=== PATIENT | male | born 1960 | race Caucasian/White ===

== ENCOUNTER → 2016-06-29 | Emergency (ER) | payer OTHER ==
[~2016-06-29] MED LIST: SODIUM CHLORIDE 1,000 ML IV STA
[2016-06-29 16:37] VITALS: BMI 29.8
--- NOTE | 2016-06-29 17:02 | PDOC ---
[id number] No Limitations - History of Present Illness Initial Comments: 06/29/16 17:36 The patient is a 56-year-old male, with a past medical history of bilateral retinal detachments who presents to the ED with nausea and diarrhea for 3 days. Patient notes that he had dinner on wednesday and had some unusual chocolate ice cream dessert. Patient reports 3 days of watery diarrhea brown in color, non foul smelling, non bloody. Patient was in the bathroom yesterday and he was nauseous and had the urge to vomit but fainted before vomiting and fell head first. Patient denies any headache, blurry vision, fever or chills. <Mari Graham - Last Filed: 06/29/16 18:54> <Deyvi King - Last Filed: 09/08/16 10:22> - General Chief Complaint: Nausea/Vomiting Stated Complaint: FALL, DIZZINESS,DIARRHEA Time Seen by Provider: 06/29/16 17:01 Past History <Mari Graham - Last Filed: 06/29/16 18:54> - Surgical History Abdominal Surgery: Yes (HERNIA REPAIR) - Psycho/Social/Smoking Cessation Hx Suicidal Ideation: No Smoking Status: No Smoking History: Never smoked Number of Cigarettes Smoked Daily: 0 <Deyvi King - Last Filed: 09/08/16 10:22> - Past Medical History Allergies/Adverse Reactions: Allergies Allergy/AdvReac Type Severity Reaction Status Date / Time No Known Allergies Allergy Verified 06/29/16 16:34 Home Medications: Ambulatory Orders No Home Medications 0 dose .ROUTE UTDICT 01/16/12 Prednisone [Deltasone -] 20 mg PO DAILY #18 tablet 07/18/12 Review of Systems - Review of Systems Able to Perform ROS?: Yes Comments:: 06/29/16 17:40 GENERAL/CONSTITUTIONAL: No fever or chills. No weakness. HEAD, EYES, EARS, NOSE AND THROAT: No change in vision. No ear pain or discharge. No sore throat. CARDIOVASCULAR: No chest pain or shortness of breath. RESPIRATORY: No cough, wheezing, or hemoptysis. GASTROINTESTINAL: +nausea, +diarrhea. No vomiting or constipation. GENITOURINARY: No dysuria, frequency, or change in urination. MUSCULOSKELETAL: No joint or muscle swelling or pain. No neck or back pain. SKIN: No rash NEUROLOGIC: No headache, vertigo, loss of consciousness, or change in strength/ sensation. ENDOCRINE: No increased thirst. No abnormal weight change. HEMATOLOGIC/LYMPHATIC: No anemia, easy bleeding, or history of blood clots. ALLERGIC/IMMUNOLOGIC: No hives or skin allergy. <Mari Graham - Last Filed: 06/29/16 18:54> *Physical Exam - Vital Signs Last Vital Signs Temp Pulse Resp BP Pulse Ox 98.7 F 84 18 146/87 96 06/29/16 16:34 06/29/16 16:34 06/29/16 16:34 06/29/16 16:34 06/29/16 16:34 - Physical Exam Comments: 06/29/16 17:40 GENERAL: Awake, alert, and fully oriented, in no acute distress HEAD: No signs of trauma EYES: PERRLA, EOMI, sclera anicteric, conjunctiva clear ENT: Auricles normal inspection, hearing grossly normal, nares patent, oropharynx clear without exudates. Moist mucosa NECK: Normal ROM, supple, no lymphadenopathy, JVD, or masses LUNGS: Breath sounds equal, clear to auscultation bilaterally. No wheezes, and no crackles HEART: Regular rate and rhythm, normal S1 and S2, no murmurs, rubs or gallops ABDOMEN: +Hyperactive bowel sounds in all 4 quadrants, + mildly distended but soft, +non tender. No guarding, no rebound. No masses EXTREMITIES: Normal range of motion, no edema. No clubbing or cyanosis. No cords, erythema, or tenderness NEUROLOGICAL: Cranial nerves II through XII grossly intact. Normal speech SKIN: Warm, Dry, normal turgor, no rashes or lesions noted. <Mari Graham - Last Filed: 06/29/16 18:54> - Vital Signs Last Vital Signs Temp Pulse Resp BP Pulse Ox 98.7 F 84 18 146/87 96 06/29/16 16:34 06/29/16 16:34 06/29/16 16:34 06/29/16 16:34 06/29/16 16:34 <Deyvi King - Last Filed: 09/08/16 10:22> ED Treatment Course - LABORATORY CBC & Chemistry Diagram: 06/29/16 17:29 06/29/16 17:29 - RADIOLOGY Radiology Studies Ordered: 06/29/16 18:36 EXAM#: TYPE/EXAM: RESULT: RAD/ABDOMEN FLAT UPRIGHT Diarrhea and abdominal pain. X-ray of the abdomen supine and upright Compared to prior x-ray of the abdomen dated 04/24/2011. There are multiple air-fluid levels in right side of the abdomen likely within the ascending colon consistent with the clinical history of diarrhea/ileus. The bowel gas pattern is nonobstructive. No gross organomegaly or free air is seen. Visualized osseous structures appear intact Impression: See discussion above 06/29/16 18:55 EXAM#: TYPE/EXAM: RESULT: CT/FACIAL BONES CT W/O CONTRAST & CT/HEAD CT WITHOUT CONTRAST Status post trauma with a nasal bone fracture. CT scan of the brain without intravenous contrast. The ventricles and basal cisterns appear unremarkable. No gross mass lesion, focal infarct or intracranial hemorrhage is identified. Visualized paranasal sinuses and mastoid air cells are well-aerated. The calvarium is intact. Deformity of the nasal bone consistent with a fracture. Impression: No evidence of a focal intracranial lesion or hemorrhage seen. Deformity of the nasal bone consistent with a fracture. CT scan of the facial bones without intravenous contrast. Coronal and sagittal reconstruction images were obtained. There is a comminuted slightly depressed fracture of the nasal bone involving the right, midline and left side with the deformity and mild displacement towards the right side. Overlying soft tissue swelling is present. No other gross fracture is identified. Both orbits are intact . There is deformity and oval-shaped of both eye globes. Slightly hyperdense band is seen around the right globe, anteriorly compatible with prior surgery. Mild mucosal thickening in the ethmoid air cells. Bilateral upper neck and submandibular subcentimeter lymph nodes are present which are nonspecific Visualized intracranial contents appear unremarkable. IMPRESSION: Comminuted slightly depressed fracture of the nasal bone involving the midline and both sides with mild deformity and deviation of the nasal bone towards the right side as well as mild overlying soft tissue swelling. Congenital deformity of both eye globes, as described above <Mari Graham - Last Filed: 06/29/16 18:54> - LABORATORY CBC & Chemistry Diagram: 06/29/16 17:29 06/29/16 17:29 <Deyvi King - Last Filed: 09/08/16 10:22> Medical Decision Making - Medical Decision Making 06/29/16 17:38 56-year-old male, with a past medical history of bilateral retinal detachments who presents to the ED with nausea and diarrhea for 3 days. He notes that the diarrhea is watery brown in color, non foul smelling, non bloody. He states he lost 7 pounds over the last 3 days. Will order IVF, labs and imaging. Will reassess after the results are back. <Mari Graham - Last Filed: 06/29/16 18:54> *DC/Admit/Observation/Transfer - Attestations Scribe Attestion: 06/29/16 17:39 Documentation prepared by JOHN Greenwood, acting as medical director of hospice for Deyvi King MD/DO. <Mari Graham - Last Filed: 06/29/16 18:54> - Discharge Dispostion Admit: No - Attestations Physician Attestion: 06/29/16 17:02 I, Dr. Deyvi King, attest that this document has been prepared under my direction and personally reviewed by me in its entirety. I further attest, that it accurately reflects all work, treatment, procedures and medical decision -making performed by me. <Deyvi King - Last Filed: 09/08/16 10:22> Diagnosis at time of Disposition: Gastroenteritis - Discharge Dispostion Disposition: HOME Condition at time of disposition: Improved - Referrals Referrals: Leroy Solis MD [Staff Physician] - - Patient Instructions Additional Instructions: PLENTY OF FLUIDS (WATER/GATORADE) BLAND DIET, ADVANCE TOLERATED EAT FREQUENT, SMALL MEALS THROUGHOUT THE DAY MAALOX, 30 ml 1/2 HOUR AFTER MEALS AND AT BED TIME RETURN IF FEVER, VOMITING, SEVERE PAIN SEE YOUR DOCTOR WITHIN 48 HOURS
[2016-06-29 17:36] LABS: BASOPHIL 0.4 % (0-2.0); EOSINOPHIL 2.2 % (0-4.5); MCH 30.5 pg (25.7-33.7); MCHC 34.5 g/dl (32.0-35.9); MEAN CELL VOLUME 88.3 fl (80-96); MEAN PLT VOLUME 8.8 fl (7.5-11.1); NEUTROPHILS 72.2 % (42.8-82.8); PLATELET COUNT 214 K/MM3 (134-434); RDW 14.3 % (11.9-15.9); WHITE BLOOD COUNT 7.7 K/mm3 (4.0-10.0)
[2016-06-29 17:59] LABS: INR 1.17 (0.82-1.09); PROTHROMBIN TIME (PATIENT) 12.9 SEC (9.98-11.88)
[2016-06-29 18:15] LABS: ALBUMIN 3.9 g/dl (3.4-5.0); ALK PHOS 73 U/L (45-117); ANION GAP 10 (8-16); BILIRUBIN,TOTAL 1.6 mg/dL (0.2-1.0); CALCIUM 8.7 mg/dL (8.5-10.1); CO2 26 mmol/L (21-32); GLUCOSE,RANDOM 110 mg/dL (74-106); SGOT/AST 11 U/L (15-37); SGPT/ALT 25 U/L (12-78); TOT PROT 7.2 g/dl (6.4-8.2)
--- NOTE | 2016-06-29 19:23 | PDOC ---
*Physical Exam - Vital Signs Last Vital Signs Temp Pulse Resp BP Pulse Ox 98.7 F 84 18 146/87 96 06/29/16 16:34 06/29/16 16:34 06/29/16 16:34 06/29/16 16:34 06/29/16 16:34 - Physical Exam General Appearance: Yes: Nourished, Appropriately Dressed. No: Apparent Distress HEENT: positive: Normal ENT Inspection Respiratory/Chest: positive: Lungs Clear, Normal Breath Sounds. negative: Respiratory Distress Cardiovascular: positive: Regular Rhythm, Regular Rate Gastrointestinal/Abdominal: positive: Normal Bowel Sounds, Flat, Soft. negative : Tender ED Treatment Course - LABORATORY CBC & Chemistry Diagram: 06/29/16 17:29 06/29/16 17:29 - ADDITIONAL ORDERS Additional order review: Laboratory Results 06/29/16 06/29/16 17:29 17:29 INR 1.17 H Sodium 141 Potassium 3.3 L Chloride 105 Carbon Dioxide 26 Anion Gap 10 BUN 22 H Creatinine 1.0 Creat Clearance w eGFR > 60 Random Glucose 110 H Calcium 8.7 Total Bilirubin 1.6 H AST 11 L ALT 25 Alkaline Phosphatase 73 Total Protein 7.2 Albumin 3.9 Lipase 122 06/29/16 17:29 RBC 4.76 MCV 88.3 MCHC 34.5 RDW 14.3 MPV 8.8 Neutrophils % 72.2 Lymphocytes % 16.4 Monocytes % 8.8 Eosinophils % 2.2 Basophils % 0.4 - RADIOLOGY Radiology Studies Ordered: Category Date Time Status ABDOMEN & PELVIS CT W/O CONTR [CT] Stat CT Scan 06/29/16 19:14 Ordered - Medications Given in the ED: ED Medications Discontinued Medications Generic Name Dose Route Start Last Admin Trade Name Freq PRN Reason Stop Dose Admin Sodium Chloride 1,000 mls @ 1,000 mls/hr 06/29/16 17:18 06/29/16 17:34 Normal Saline - IV 06/29/16 18:17 1,000 mls/hr ASDIR STA Administration Progress Note - Progress Note Progress Note: signed out to me for CT follow up. pt w/ diarrhea and dehydration w/ syncope. abd soft nt/nd. passing gas xray c/w clinical diagnosis w/ no susp (clinical or radiological) for SBO will cancel CT to r/o sbo *DC/Admit/Observation/Transfer Diagnosis at time of Disposition: Gastroenteritis - Discharge Dispostion Disposition: HOME Condition at time of disposition: Improved - Patient Instructions Additional Instructions: PLENTY OF FLUIDS (WATER/GATORADE) BLAND DIET, ADVANCE TOLERATED EAT FREQUENT, SMALL MEALS THROUGHOUT THE DAY MAALOX, 30 ml 1/2 HOUR AFTER MEALS AND AT BED TIME RETURN IF FEVER, VOMITING, SEVERE PAIN SEE YOUR DOCTOR WITHIN 48 HOURS
[2016-06-29 19:44] VITALS: BP 135/81; PULSE 72; TEMP 98
== END | disposition home or self-care (01) ==
LOC: JER 16:23
PROC: 3E0337Z Introduction of Electrolytic and Water Balance Substance into Peripheral Vein, Percutaneous Approach (ICD-10-PCS; principal; 2016-06-29)
DX: K52.9 Noninfective gastroenteritis and colitis, unspecified (principal)
CPT/HCPCS: 36415; 70450-TC; 70486-TC; 74020-TC; 80053; 83690; 85025; 85610; 96360; 99283-25

== ENCOUNTER 2017-11-13 08:20 | Emergency (ER) | payer OTHER ==
[2017-11-13 08:30] VITALS: TEMP 97.9; BMI 31.5
--- NOTE | 2017-11-13 08:47 | PDOC ---
History of Present Illness - General History Source: Patient, Family, Old Records Exam Limitations: No Limitations - History of Present Illness Initial Comments: 11/13/17 09:44 The patient is a 57 year old male, with a significant PMH of bilateral retinal detachment, who presents to the emergency department with 2 days of dizziness. The patient states that two nights ago at 3 am he got up from bed to use the bathroom and began to experience a sudden onset of dizziness describes as a room spinning sensation. The patient states the dizziness is made worse with movement and when he turns his head. The patient states he has not been able to walk on his own secondary to the dizziness. The patient states he has never had these symptoms in the past. The patient also endorses nausea without vomiting but states he has been dry heaving. The patient also endorses a decreased appetite. The patient states he had been feeling well and of his usual state of health up until two days ago when he experienced the dizziness sensation. The patient denies any sick contacts. The patient denies chest pain, shortness of breath, weakness or headache. Denies fever, chills, vomit, diarrhea and constipation. Denies dysuria, frequency, urgency and hematuria. Allergies: NKA Surgical history: Cataract surgery <Michael Watson - Last Filed: 11/13/17 09:44> <Dana Stephenson - Last Filed: 11/13/17 14:28> - General Chief Complaint: Lightheaded Stated Complaint: LIGHTHEADED, NAUSEA Time Seen by Provider: 11/13/17 08:47 Past History <Michael Watson - Last Filed: 11/13/17 09:44> - Past Medical History COPD: No - Surgical History Abdominal Surgery: Yes (HERNIA REPAIR) - Suicide/Smoking/Psychosocial Hx Smoking Status: No Smoking History: Never smoked Number of Cigarettes Smoked Daily: 0 <Dana Stephenson - Last Filed: 11/13/17 14:28> - Past Medical History Allergies/Adverse Reactions: Allergies Allergy/AdvReac Type Severity Reaction Status Date / Time No Known Allergies Allergy Verified 11/13/17 08:30 Home Medications: Ambulatory Orders No Home Medications 0 dose .ROUTE UTDICT 01/16/12 Review of Systems - Review of Systems Comments:: 11/13/17 09:45 GENERAL/CONSTITUTIONAL: No fever or chills. No weakness. HEAD, EYES, EARS, NOSE AND THROAT: No change in vision. No ear pain or discharge. No sore throat. CARDIOVASCULAR: No chest pain or shortness of breath. RESPIRATORY: No cough, wheezing, or hemoptysis. GASTROINTESTINAL: (+) Nausea. No Vomiting. No diarrhea or constipation. GENITOURINARY: No dysuria, frequency, or change in urination. MUSCULOSKELETAL: No joint or muscle swelling or pain. No neck or back pain. SKIN: No rash NEUROLOGIC: (+) Vertigo. No headache, loss of consciousness, or change in strength/sensation. ENDOCRINE: No increased thirst. No abnormal weight change. HEMATOLOGIC/LYMPHATIC: No anemia, easy bleeding, or history of blood clots. ALLERGIC/IMMUNOLOGIC: No hives or skin allergy. <Michael Watson - Last Filed: 11/13/17 09:44> *Physical Exam - Vital Signs Last Vital Signs Temp Pulse Resp BP Pulse Ox 97.9 F 67 18 127/62 99 11/13/17 08:27 11/13/17 08:27 11/13/17 08:27 11/13/17 08:27 11/13/17 08:27 - Physical Exam Comments: 11/13/17 09:45 GENERAL: Awake, alert, and fully oriented, in no acute distress HEAD: No signs of trauma EYES: PERRLA, EOMI, sclera anicteric, conjunctiva clear ENT: Auricles normal inspection, hearing grossly normal, nares patent, oropharynx clear without exudates. Moist mucosa NECK: Normal ROM, supple, no lymphadenopathy, JVD, or masses LUNGS: Breath sounds equal, clear to auscultation bilaterally. No wheezes, and no crackles HEART: Regular rate and rhythm, normal S1 and S2, no murmurs, rubs or gallops ABDOMEN: Soft, nontender, normoactive bowel sounds. No guarding, no rebound. No masses EXTREMITIES: Normal range of motion, no edema. No clubbing or cyanosis. No cords, erythema, or tenderness NEUROLOGICAL: Cranial nerves II through XII grossly intact. Normal speech. Heel wilde test, rapid alternating movements and finger to nose test were normal. SKIN: Warm, Dry, normal turgor, no rashes or lesions noted. <Michael Watson - Last Filed: 11/13/17 09:44> - Vital Signs Last Vital Signs Temp Pulse Resp BP Pulse Ox 97.9 F 67 18 127/62 99 11/13/17 08:27 11/13/17 08:27 11/13/17 08:27 11/13/17 08:27 11/13/17 08:27 <Dana Stephenson - Last Filed: 11/13/17 14:28> ED Treatment Course - LABORATORY CBC & Chemistry Diagram: 11/13/17 10:01 11/13/17 10:01 <Dana Stephenson - Last Filed: 11/13/17 14:28> Medical Decision Making - Medical Decision Making 11/13/17 10:16 pt presents to the ED complaining of the acute onset of positional vertigo accompanied by nausea without vomiting. Symptoms are most consistent with peripheral vertigo. Will treat with meclizine, nausea control and fluids and reassess. 11/13/17 14:23 pt feels improved after meclizine, valium and IVF in the ED. He is able to ambulate, although he still has some symptoms when he moves his head. He tolerated Po in the ED. Will discharge home with referral to his PMD. <Dana Stephenson - Last Filed: 11/13/17 14:28> *DC/Admit/Observation/Transfer - Attestations Scribe Attestion: 11/13/17 09:46 Documentation prepared by Michael Watson, acting as bio medical technician for Dana Stephenson MD, . <Michael Watson - Last Filed: 11/13/17 09:44> - Discharge Dispostion Decision to Admit order: No <Dana Stephenson - Last Filed: 11/13/17 14:28> Diagnosis at time of Disposition: Vertigo - Discharge Dispostion Disposition: HOME Condition at time of disposition: Good - Referrals Referrals: Robert Zhang [Primary Care Provider] - Leroy Solis MD [Staff Physician] - 3 days (call Dr. Solis for follow up if your vertigo is not improving within the next three days.) - Patient Instructions Printed Discharge Instructions: DI for Vertigo Additional Instructions: return to the ED for severe nausea and vomiting, severe unsteadiness on your feet, unable to walk, other new or worsening symptoms. Make sure that you follow up with your primary care doctor on Wednesday. use the meclizine to prevent dizziness and the zofran for nausea. use the valium as a last resort. - Post Discharge Activity
[2017-11-13] MEDS ORDERED: MECLIZINE HCL 25 MG TABLET (FP) PO ONE ×2 (10:00→11:16)
[2017-11-13] MEDS ORDERED: ONDANSETRON 4 MG/2 ML VIAL IVPUSH ONE (10:00)
[2017-11-13] MEDS ORDERED: SODIUM CHLORIDE 0.9% 500 ML INFUS.BAG IV ONE ×2 (10:01→11:15)
[2017-11-13] MEDS ORDERED: ONDANSETRON 4 MG/2 ML VIAL ONE (10:03)
[2017-11-13] MEDS ORDERED: MECLIZINE HCL 25 MG TABLET (FP) ONE ×2 (10:03→11:51)
[2017-11-13 10:18] LABS: BASO % 0.4 % (0-2.0); EOS % 0.4 % (0-4.5); HEMATOCRIT 42.7 % (35.4-49); HEMOGLOBIN 14.4 GM/dL (11.7-16.9); LYMPH % 25.8 % (8-40); MCH 30.2 pg (25.7-33.7); MCHC 33.6 g/dl (32.0-35.9); MEAN CELL VOLUME 89.8 fl (80-96); MEAN PLT VOLUME 9.1 fl (7.5-11.1); MONO % 4.8 % (3.8-10.2); NEUT % 68.6 % (42.8-82.8); PLATELET COUNT 204 K/MM3 (134-434); RBC 4.76 M/mm3 (4.00-5.60); RDW 14.5 % (11.9-15.9); WHITE BLOOD COUNT 7.2 K/mm3 (4.0-10.0)
[2017-11-13] MEDS ORDERED: METOCLOPRAMIDE HCL INJECTION 10 MG/2 ML VIAL IVPUSH ONE (11:15)
[2017-11-13 11:16] LABS: ALBUMIN 4.1 g/dl (3.4-5.0); ANION GAP 7 (8-16); BLOOD UREA NITROGEN 22 mg/dL (7-18); CALCIUM 9.3 mg/dL (8.5-10.1); CHLORIDE 106 mmol/L (98-107); CO2 29 mmol/L (21-32); GLUCOSE,RANDOM 132 mg/dL (74-106); POTASSIUM 4.6 mmol/L (3.5-5.1); SGOT/AST 18 U/L (15-37); SGPT/ALT 28 U/L (12-78); SODIUM 142 mmol/L (136-145)
[2017-11-13 11:17] LABS: ALK PHOS 71 U/L (45-117); BILIRUBIN,TOTAL 0.9 mg/dL (0.2-1.0); TOT PROT 7.7 g/dl (6.4-8.2)
[2017-11-13] MEDS ORDERED: METOCLOPRAMIDE HCL INJECTION 10 MG/2 ML VIAL ONE (11:51)
[2017-11-13 12:26] VITALS: BP 103/73; PULSE 64
[2017-11-13] MEDS: diazePAM CARPU-JECT 10 MG/2 ML DISP.SYRIN IVPUSH ONE ×2 (13:20→13:47)
[2017-11-13] MEDS ORDERED: diazePAM 5 MG TABLET ONE (13:36)
[2017-11-13] MEDS ORDERED: diazePAM 5 MG TABLET PO ONE (13:36)
== END 2017-11-13 15:09 | disposition home or self-care (01) ==
LOC: JER 08:20
PROC: 3E033GC Introduction of Other Therapeutic Substance into Peripheral Vein, Percutaneous Approach (ICD-10-PCS; principal; 2017-11-13)
PROC: 3E033GC Introduction of Other Therapeutic Substance into Peripheral Vein, Percutaneous Approach (ICD-10-PCS; 2017-11-13)
PROC: 3E0337Z Introduction of Electrolytic and Water Balance Substance into Peripheral Vein, Percutaneous Approach (ICD-10-PCS; 2017-11-13)
DX: H81.399 Other peripheral vertigo, unspecified ear (principal)
CPT/HCPCS: 36415; 80053; 85025; 96374; 96375; 99283-25

== ENCOUNTER 2019-12-11 12:05 | Emergency (ER) | payer OTHER ==
[2019-12-11 12:14] VITALS: BP 145/87; PULSE 77; TEMP 98.1; BMI 32.5
--- NOTE | 2019-12-11 13:01 | PDOC ---
Attending Attestation - Resident Resident Name: Jaret Garcia - ED Attending Attestation I have performed the following: I have examined & evaluated the patient, The case was reviewed & discussed with the resident, I agree w/resident's findings & plan, Exceptions are as noted - HPI HPI: 12/11/19 13:02 59y M no known pmhx presents with 4 days of intermittent RUQ/R sided abdominal pain. Pt notes he has been working on his mothers house, and 4 days ago, he was straining/pushing somethin gup to screw in when he had approx 30 seconds of sharp R flank pain that then resolved. He has had persistent occasional burning abdmonial pain with mild nausea since. Occasionally worsens with food intake. denies any fever/chills, sob/mathews, diarrhea, dysuria, diaphoresis, hematira. Pt notse the pain seems worse at night. States he feels ok right now without any pain, but came in today due to insistance of his kids. He did speak to his doctor over the phone who recommended he take prilosec, but has not yet tried it yet. - Physicial Exam PE: 12/11/19 13:17 GENERAL: The patient is awake, alert, and fully oriented, Nontoxic - in no acute distress. HEAD: Normocephalic, atraumatic. EYES: extraocular movements intact, sclera anicteric, conjunctiva clear. ENT: Normal voice, Moist mucous membranes. NECK: Normal range of motion, supple LUNGS: Breath sounds equal, clear to auscultation bilaterally. No wheezes, no rhonchi, no rales. HEART: Regular rate and rhythm, normal S1 and S2 without murmur, rub or gallop. ABDOMEN: Soft, protuberent abdomen, nontender, No guarding, no rebound. No CVA tenderness EXTREMITIES: Normal range of motion, no edema. NEUROLOGICAL: No facial assymetry, Normal speech, PSYCH: Normal mood, normal affect. SKIN: Warm, Dry, normal turgor, - Medical Decision Making 12/11/19 13:18 suspect possible gall stones vs kidney stones, consider gerd. also consider ACS, however atypical will obtain labs, lipase, ekg, ua, RUQ US pt declines pain medications 12/11/19 14:43 labs reviewed US reviewed pt feeling improved will dc with outpatint fu return precautions were discused Heart Score/ECG Review - ECG Impressions Comment:: 12/11/19 15:00 Twelve-lead EKG was performed and reviewed by me. There is normal sinus rhythm with a normal rate. rate of 64 q wave in lead II and avf no prior ekg for comparison Discharge - Discharge Information Problems reviewed: Yes Clinical Impression/Diagnosis: Elevated bilirubin Abdominal pain Qualifiers: Abdominal location: right upper quadrant Qualified Code(s): R10.11 - Right upper quadrant pain Acid reflux Qualifiers: Esophagitis presence: without esophagitis Qualified Code(s): K21.9 - Gastro- esophageal reflux disease without esophagitis Condition: Stable Disposition: HOME - Follow up/Referral Referrals: Robert Zhang [Primary Care Provider] - Nimesh Edgar MD [Staff Physician] - Isrrael Jim MD [Staff Physician] - Konstantin Huitron MD [Staff Physician] - Lamin Sorto MD [Staff Physician] - - Patient Discharge Instructions Patient Printed Discharge Instructions: DI for Abdominal Pain-Adult Additional Instructions: You were seen in the Emergency Department for evaluation of abdominal pain. Your labs were notable for an elevated bilirubin your ultrasound was unremarkable. You symptoms are likely due to muscular pain versus gastric reflux. Take the Priolsec that was prescribed as directed. For pain you may take Tylenol 650mg every 6 hours as needed. Review the handout provided at discharge. Follow up with your primary care provider within a week. Bananas, Apples, Rice, and [place] (BRAT) diets may be beneficial to alleviating your symptoms. Avoid heavily flavored foods and spicy foods. Start with water/gatorade sips and advance as tolerated. If you try to incorporate solids and vomit, go back to liquids and try advancing slowly again over several hours. Return to the Emergency Department if you develop fevers/chills, chest pain, trouble breathing, inability to tolerate fluids, blood in your stool/vomit, worsening pain, worsening symptoms, or any new/concerning symptoms. - Post Discharge Activity Work/Back to School Note: Back to Work
--- NOTE | 2019-12-11 13:16 | PDOC ---
History of Present Illness - General Chief Complaint: Pain Stated Complaint: ABD PAIN Time Seen by Provider: 12/11/19 12:24 - History of Present Illness Initial Comments: The pt is a 59M w/ a history of b/l inguinal hernia repair and reflux who presents for evaluation of 4 days of abdominal pain. The pain is R sided, intermittent, burning/achy, sometimes worse post-prandially, associated with nausea, and not alleviated by anything he can identify. He reports having this type of pain the past but is unsure of the cause. He was prescribed Priolsec this past week but has not had a chance to pick it up/take it yet. He denies fevers/chills, vomiting, chest pain, trouble breathing, current abdominal pain, diarrhea, dysuria, hematuria, or blood in his stool. Reports colonoscopy 10 years ago that was normal Meds: Denies Allergies: Denies 12/11/19 13:05 Past History - Medical History Allergies/Adverse Reactions: Allergies Allergy/AdvReac Type Severity Reaction Status Date / Time No Known Allergies Allergy Verified 12/11/19 12:10 Home Medications: Ambulatory Orders NK [No Known Home Medication] 12/11/19 COPD: No - Surgical History Abdominal Surgery: Yes (HERNIA REPAIR) - Psycho-Social/Smoking History Smoking Status: No Smoking History: Never smoked Have you smoked in the past 12 months: No Number of Cigarettes Smoked Daily: 0 Information on smoking cessation initiated: No - Substance Abuse Hx (Audit-C & DAST Scrn) How often the patient has a drink containing alcohol: Never Score: In Men: 4 or > Positive; In Women: 3 or > Positive: 0 Screen Result (Pos requires Nsg. Audit-10AR): Negative In the last yr the pt used illegal drug/Rx for NonMed reason: No Score: Yes response is considered Positive: 0 Screen Result (Positive result requires Nsg. DAST-10): Negative Review of Systems - Review of Systems Able to Perform ROS?: Yes Comments:: GENERAL/CONSTITUTIONAL: No fever or chills. No weakness HEAD, EYES, EARS, NOSE AND THROAT: No change in vision. No change in hearing. No sore throat CARDIOVASCULAR: No chest pain or shortness of breath RESPIRATORY: Denies cough, hemoptysis GASTROINTESTINAL: +nausea; denies vomiting, diarrhea or constipation GENITOURINARY: No dysuria, hematuria MUSCULOSKELETAL: No joint or muscle swelling or pain. No neck or back pain SKIN: No rash NEUROLOGIC: No headache, vertigo, loss of consciousness, or change in strength/sensation ENDOCRINE: No increased thirst. No abnormal weight change HEMATOLOGIC/LYMPHATIC: No anemia, easy bleeding, or history of blood clots ALLERGIC/IMMUNOLOGIC: No hives or skin allergy 12/11/19 13:18 Is the patient limited Romansh proficient: No *Physical Exam - Vital Signs Last Vital Signs Temp Pulse Resp BP Pulse Ox 98.1 F 77 18 145/87 99 12/11/19 12:05 12/11/19 12:05 12/11/19 12:05 12/11/19 12:05 12/11/19 12:05 - Physical Exam GENERAL: Awake, alert, and oriented to person/place/time, in no acute distress HEAD: No signs of trauma, normocephalic, atraumatic EYES: PERRLA, EOMI, sclera anicteric, conjunctiva clear ENT: Hearing grossly normal, nares patent, oropharynx clear without exudates. No uvular deviation. Moist mucosa LUNGS: No distress, speaks in full sentences, clear to auscultation bilaterally HEART: Regular rate and rhythm, normal S1 and S2, no murmurs appreciated, peripheral pulses normal and equal bilaterally ABDOMEN: Soft, protuberant, nontender, normoactive bowel sounds. No guarding, no rebound. No abdominal wall defects appreciated EXTREMITIES: Normal inspection, Normal range of motion, no edema. No clubbing or cyanosis NEUROLOGICAL: Cranial nerves II through XII grossly intact. Normal speech, normal gait, no focal sensorimotor deficits SKIN: Warm, Dry 12/11/19 13:18 ED Treatment Course - LABORATORY CBC & Chemistry Diagram: 12/11/19 12:50 12/11/19 12:50 - RADIOLOGY Radiology Studies Ordered: Category Date Time Status ABDOMEN US -LIMITED [US] Stat Ultrasound 12/11/19 13:05 Ordered Medical Decision Making - Medical Decision Making The pt is a 59M w/ a history of b/l inguinal hernia repair and reflux who presents for evaluation of 4 days of abdominal pain that is occasionally post- prandial w/ associated nausea Ddx: PUD, biliary disease, consider pancreatitis, not likely appendicitis, consider nephrolithiasis, not likely ventral hernia (no defect appreciated) ED Course CMP, CBC, Lipase, UA, UCx RUQ US Pt does not want pain medication at this time 12/11/19 13:16 UA w/o evidence of UTI, no blood in urine No leukocytosis No anemia Lytes unremarkable Tbili elevated, US pending Remainder of LFTs unremarkable ECG w/ NSR; HR 64; QTc 427; no axis deviation; no acute ischemic changes, narrow QRS 12/11/19 13:46 US w/ evidence of fatty liver w/o evidence of biliary disease Pt continues to be asymptomatic Symptoms likely 2/2 muscular strain versus reflux Pt advised to take Prilosec that was prescribed and avoid heavily spiced/spicy foods Discharge instructions and return precautions given Patient in agreement and verbalized understanding Dispo: Home 12/11/19 14:49 Discharge - Discharge Information Problems reviewed: Yes Clinical Impression/Diagnosis: Elevated bilirubin Abdominal pain Qualifiers: Abdominal location: right upper quadrant Qualified Code(s): R10.11 - Right upper quadrant pain Acid reflux Qualifiers: Esophagitis presence: without esophagitis Qualified Code(s): K21.9 - Gastro- esophageal reflux disease without esophagitis Condition: Stable Disposition: HOME - Admission No - Follow up/Referral Referrals: Robert Zhang [Primary Care Provider] - Konstantin Huitron MD [Staff Physician] - Isrrael Jim MD [Staff Physician] - Nimesh Edgar MD [Staff Physician] - Lamin Sorto MD [Staff Physician] - - Patient Discharge Instructions Patient Printed Discharge Instructions: DI for Abdominal Pain-Adult Additional Instructions: You were seen in the Emergency Department for evaluation of abdominal pain. Your labs were notable for an elevated bilirubin your ultrasound was unremarkable. You symptoms are likely due to muscular pain versus gastric reflux. Take the Priolsec that was prescribed as directed. For pain you may take Tylenol 650mg every 6 hours as needed. Review the handout provided at discharge. Follow up with your primary care provider within a week. Bananas, Apples, Rice, and [place] (BR[place]) diets may be beneficial to alleviating your symptoms. Avoid heavily flavored foods and spicy foods. Start with water/gatorade sips and advance as tolerated. If you try to incorporate solids and vomit, go back to liquids and try advancing slowly again over several hours. Return to the Emergency Department if you develop fevers/chills, chest pain, trouble breathing, inability to tolerate fluids, blood in your stool/vomit, worsening pain, worsening symptoms, or any new/concerning symptoms. - Post Discharge Activity Work/Back to School Note: Back to Work
[2019-12-11 13:25] LABS: BASO % 1.1 % (0-2.0); EOS % 0.9 % (0-4.5); HEMATOCRIT 46.3 % (35.4-49); HEMOGLOBIN 15.4 GM/dl (11.7-16.9); LYMPH % 26.9 % (8-40); MCH 29.6 pg (25.7-33.7); MCHC 33.2 g/dl (32.0-35.9); MEAN CELL VOLUME 89.2 fl (80-96); MEAN PLT VOLUME 9.6 fl (7.5-11.1); MONO % 6.8 % (3.8-10.2); NEUT % 64.3 % (42.8-82.8); PLATELET COUNT 242 K/MM3 (134-434); RBC 5.18 M/mm3 (4.00-5.60); RDW 13.2 % (11.9-15.9); WHITE BLOOD COUNT 7.9 K/mm3 (4.0-10.8)
[2019-12-11 13:38] LABS: ALBUMIN 4.6 g/dl (3.4-5.0); BILIRUBIN,TOTAL 1.7 mg/dl (0.2-1); CALCIUM 9.3 mg/dl (8.5-10); CREATININE 0.9 mg/dl (0.55-1.3); POTASSIUM 4.6 mmol/L (3.5-5.1); TOT PROT 7.7 g/dl (6.4-8.2)
--- NOTE | 2019-12-12 10:46 | EKG ---
Test Reason : Blood Pressure : / mmHG Vent. Rate : 064 BPM Atrial Rate : 064 BPM P-R Int : 160 ms QRS Dur : 094 ms QT Int : 414 ms P-R-T Axes : 055 -09 -01 degrees QTc Int : 427 ms NORMAL SINUS RHYTHM MINIMAL VOLTAGE CRITERIA FOR LVH, MAY BE NORMAL VARIANT INFERIOR INFARCT (CITED ON OR BEFORE 24-APR-2011) ABNORMAL ECG WHEN COMPARED WITH ECG OF 24-APR-2011 11:30, NO SIGNIFICANT CHANGE WAS FOUND Confirmed by Nnamdi Enrique ([id number]) on 12/12/2019 10:46:11 AM Referred By: MARY VEGA Confirmed By:Nnamdi Enrique
== END 2019-12-11 15:35 | disposition home or self-care (01) ==
LOC: FER 12:05
DX: R10.11 Right upper quadrant pain (principal); K21.9 Gastro-esophageal reflux disease without esophagitis
CPT/HCPCS: 36415; 76705-TC; 80053; 81003; 83690; 85025; 87086; 93005; 99285-25